=== PATIENT | male | born 1955 | race Caucasian/White ===

== ENCOUNTER 2020-06-12 16:33 | Outpatient (RCR) | payer BC, SELFPAY ==
[2020-06-12] MEDS: COVID-19 VACC, MRNA(PFIZER)/PF 30 MCG/0.3 ML SYRINGE IM (18:12)
[2020-07-03] MEDS: COVID-19 VACC, MRNA(PFIZER)/PF 30 MCG/0.3 ML SYRINGE IM (17:36)
== END 2020-06-12 23:59 ==
LOC: IMMUN 16:33
PROVIDERS: Referring Provider Family Medicine; Visit Provider Family Medicine
DX: Z23 Encounter for immunization (principal)
CPT/HCPCS: 0001A; 0002A; 91300

== ENCOUNTER 2022-01-01 05:59 | Day surgery (SDC) | payer BC, SELFPAY ==
[2022-01-01] VITALS (7 sets, daily range): BP systolic 104–141; BP diastolic 66–82; PULSE 55–66; RESP 16; TEMP 35.9–36.1; O2SAT 94–98; BMI 36.8
[2022-01-01] MEDS: Lactated Ringers 1,000 ML 15 ML IV ×2 (06:28→10:01)
--- NOTE | 2022-01-01 07:30 | CYST_PTH ---
PATIENT: RIK FERRARI LOC: [facility] – [place], [place] U#:[id number] AGE/SX: 66/M ROOM: RE01/01/[address]: Dr. Aric Herndon MD : 1955 BED: DIS: 01/01/2022 SPEC #: [id number] RECD: 01/01/22 11:08 STATUS: EDUARDO VLADISLAV #: [id number] CARMEN: 01/01/22 07:[address]: Aric Herndon DEPT: SURGICAL PATHOLOGY RECD BY: Rian Miller ENTERED: 01/01/22 12:28 SP TYPE: Cyst OTHR DR: Dr. Varinder Dickey, DO Tissues: A - Skin appendage, NOS B - CYST C - CYST D - CYST E - CYST Procedures: Surgery Specimen Level III Surgery Specimen Level IV HEADER OPERATION: Removal of cysts on back, removal axillary mole on side PRE-OP DIAGNOSIS: Sebaceous cyst, nevus comedonicus of trunk, skin tag TISSUE SUBMITTED: A ? Left axillary mole, B ? Left shoulder sebaceous cyst, C ? Left upper back sebaceous cyst, D ? Left lower back sebaceous cyst, E ? Right shoulder sebaceous cyst MICROSCOPIC DIAGNOSIS A. Skin lesion of left axilla, biopsy: Seborrheic keratosis, mildly inflamed. B. Cyst of left shoulder, excision: Epidermal inclusion cyst. C. Skin lesion of left upper back, excision: Fat necrosis, fibrosis, acute and chronic inflammation and focal microabscess formation. See comment. D. Cyst of left lower back, excision: Epidermal inclusion cyst. E. Cyst of right shoulder, excision: Epidermal inclusion cyst. AM:dino 01/04/2022 COMMENT C. A distinct cyst is not identified. MICROSCOPIC DESCRIPTION Slides are reviewed. GROSS DESCRIPTION A - Received in fixative is one container labeled with the patient's name and designated left axillary mole. The specimen consists of a piece of rothman-white skin measuring 1 x 0.5 cm and up to 0.4 cm in thickness. There is an ovoid, brown lesion on the surface measuring 0.9 x 0.3 cm. The specimen is inked, serially sectioned and submitted entirely in one cassette. B - Received in fixative is one container labeled with the patient's name and designated left shoulder sebaceous cyst. The specimen consists of a piece of rothman soft tissue measuring 2.5 x 2 x 1.5 cm. Sections reveal a cyst occupying the entire specimen filled with yellow sebum-like material. The specimen is inked and serially sectioned. Hot Mill Worker sections are submitted in one cassette. C - Received in fixative is one container labeled with the patient's name and designated left upper back sebaceous cyst. The specimen consists of two irregular pieces of rothman soft tissue measuring 4 x 2.5 x 2 cm and 1.5 x 1.5 x 1 cm. The largest piece appears to be consistent with ruptured cyst. Hot Mill Worker sections are submitted in three cassettes. D - Received in fixative is one container labeled with the patient's name and designated left lower back sebaceous cyst. The specimen consists of an irregular piece of soft tissue measuring 3 x 3.5 x 1.5 cm. The specimen appears consistent with ruptured cyst. Hot Mill Worker sections are submitted in one cassette. E - Received in fixative is one container labeled with the patient's name and designated right shoulder sebaceous cyst. The specimen consists of a piece of rothman-pink soft tissue measuring 2.5 x 1.5 x 1.5 cm. The specimen is replaced by a cyst filled with rothman-white cheesy material. Hot Mill Worker sections are submitted in one cassette. / SJ:dino 01/01/2022 TC:3 CPT: 92174 x2, 09775 x3
--- NOTE | 2022-01-01 07:31 | HP.PCM_ITS ---
History and Physical Date of Service:? 12/25/21 MR#: [id number] Acct: [id number] Name:RIK CERVANTES Rep #: [id number] : 1955 ? ? Provider: Dr. Aric Herndon MD Age/Sex:? 66/M ? ? Location: [facility] Status: Signed Intake Vital Signs ? 12/26/2207:56 Height 6 ft 2 in Weight: 289 lb BMI 37.0 BP 135/85 H Blood Pressure Location Lt brachial Position Sitting D Respiration 20 H Pulse 70 Pulse Source NIBP Temp 98.2 F Temp Source Temporal Pulse Oximetry (%) 95 Oxygen Delivery Method room air Intake Visit Reasons:?CYST UPPER L BACK Chief Complaint: multiple back cysts, left axillary lesion [employer] Air [employer] Operations Officer Required: No Is patient in pain?: No Allergies No Known Allergies Allergy (Verified 12/25/21 08:57) PFSH Medical History?(Updated 12/25/21 @ 17:[address] Aric Herndon MD) Back pain Infected sebaceous cyst of skin Osteoarthritis Surgical History?(Updated 12/25/21 @ 08:56 by Rachel Reyes) History of excision of pilonidal cyst History of foot surgery HPI HPI HPI: Patient is a 66-year-old male who presents for evaluation of a left upper back cyst.? He [facility] from [facility] after he was seen in November, when this cyst was initially addressed with an I&D procedure and antibiotics (Augmentin).? He reports that he actually has some 3-4 separate cysts that have never caused him many troubles.? He admits that 1 in the middle of his back is the largest and his father squeezed it for him approximately 15 years ago to relieve some of the pressure at that area.? He also requests removal of a left armpit mole and a skin tag on the inner aspect of his left eye.? He states that since his I&D procedure in November his back has not bothered him any longer, but he is hoping to have things evaluated for removal so they do not get to the point of becoming inflamed.? He denies a history of any other skin infections?particularly excluding any history of staph.? He denies any history of being told he has elevated blood sugars.? He denies any use of smoked tobacco, but does admit to the use of smokeless tobacco.? He denies any history of delayed wound healing. Regarding his left axillary mole, he admits that it has grown in size over many years (he initially states when he first noticed it was as a child).? He has not noticed any change in color.? He has not noticed any swollen lymph nodes.? He does not have any history of skin cancer.? He states that he has been heavyset most of his life so he has not had an inordinate amount of sun exposure to the area either. Lastly regarding his skin tag, he states that it is uncomfortable with his glasses, but does not interfere with his vision. 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 Pertinent surgical history includes: No history of anesthetic troubles Exam Const General: cooperative Orientation: alert, awake and oriented x3 Resp Effort & Inspection: normal respiratory effort Skin Other: Patient has semimobile subcutaneous lesions in the following areas: ? Left base of neck: Approximately 1 cm diameter ? Left upper back: Roughly 3 cm diameter ? Left mid back: Approximately 5 cm diameter ? Right shoulder: Approximately 1.5 cm diameter The mole in patient's left armpit is approximately 1 cm in length and appears symmetrical with uniform color.? I do not palpate any enlarged lymphadenopathy. The area patient complains of a skin tag is approximately 1 cm away from his lacrimal duct Assessment and Plan Assessment and Plan (1) Sebaceous cyst: ?Status:?Acute ?Comment: This is a 66-year-old male who presents for evaluation of multiple sebaceous cysts of his back after experiencing a inflamed/infected cyst last month that required incision and drainage and antibiotics.? This index cyst inflammatory process appears nearly completely resolved, however, by my count on exam he has 3 additional areas (noted in the exam section above).? We were not particularly bothersome to him at this point, but he does wish for them to be excised to avoid issues in the future.? I discussed that this could be done under a MAC anesthetic to keep him most comfortable.? I discussed that we should be able to close these areas primarily with dissolvable sutures?barring any unforeseen issues with dissection.? I have also shared with him that there is a small risk for seroma development?particularly with his mid back cyst given its size.? Lastly, patient states that he routinely goes for chiropractic adjustments at least once weekly and wishes to know whether this will still be possible postoperatively.? To this question I have suggested he abstain from any adjustments for 3 weeks postoperatively to minimize his risk for wound disruption. ?Plan: ? Excision of sebaceous cyst under local MAC at first mutually agreeable availability (2) Nevus comedonicus of trunk: ?Status:?Acute ?Comment: Patient with a approximately 1 cm nevus of the left armpit.? This is asymptomatic, but patient wishes for it to be removed.? Given our plans for excision of the multiple sebaceous cysts, discussed above, excision of this n evus could be done simultaneously.? Does not appear to be concerning for malignancy so I will perform a simple excision with narrow margins. ?Plan: ? Excision of left axillary nevus simultaneous with sebaceous cyst excision (3) Skin tag: ?Status:?Acute ?Comment: Patient with skin tag of skin just adjacent to the medial commissure and lacrimal papilla of the left eye.? This is causing some discomfort with wearing glasses.? However, given its proximity to the lacrimal drainage pathway, I would not be able to offer excision of this lesion.? Mr. Chery expresses understanding of this information. ?Plan: Patient will require evaluation by specialist given proximity to critical du ctwork I have re-examined the patient. There are no clinical changes since date of exam. Plan to proceed with excision of 4 subcutaneous lesions?likely sebaceous cysts?as well as a left axillary nevus.
[2022-01-01] MEDS: Cefazolin 2 GM in 0.9% Normal Saline 100 ML IV (07:39)
--- NOTE | 2022-01-01 10:23 | OP.PCM_ITS ---
Report of Operation Date of Procedure: 01/01/22 Pre-Operative Diagnosis: 1. Left axillary nevus 2. Multiple sebaceous cysts of the back Surgery/Procedure Performed:: Excision of left axillary nevus and sebaceous cysts x4 Surgeon: Aric Herndon field underwriter: Dayami Flowers Type of Anesthesia: MAC/Supplemental Anesthesiologist: Nabeel Kohli Specimen's removed: 1. Left axillary mole 2. Left shoulder sebaceous cyst 3. Left upper back sebaceous cyst 4. Left lower back sebaceous cyst Drains: None Estimated Blood Loss (mL): 75 Description of Procedure: After confirming consents and appropriate identification in the preoperative holding area, the patient was brought to the operating room. There he was positioned supine on the operating room table. He underwent induction of a MAC anesthetic with anesthesia and placement of an LMA. Preoperative antibiotics were administered. Left axillary hair was clipped and the left axilla was prepped and draped in usual sterile fashion. Formal timeout was conducted to confirm the patient and procedure to be done. I then instilled local anesthetic to produce a local block around the patient's left axillary nevus. Making an elliptical incision directly around this lesion I performed a simple excision of left axillary mole to a depth of the subcutaneous tissue. The specimen was passed off the field for pathology and the cavity was then closed in layers with a 3-0 Vicryl followed by 4-0 Monocryl in a subcuticular fashion. Dermabond was applied as a dressing. Patient was then positioned in a left lateral decubitus position taking care to pad pressure points and placed an axillary roll. The back was then prepped and draped in the usual sterile fashion. Again, local anesthetic was instilled over a cyst along the patient's left shoulder and a small transverse incision was made over the area of interest. Then using a comb ination of blunt and sharp dissection a sebaceous cyst was completely excised and passed off the field for pathologic processing. The cavity was irrigated and hemostasis was confirmed. A Ray-Kevin gauze was packed into the cavity to assist with hemostasis. We then proceeded with excision of left upper back sebaceous cyst. Here, again, a local block was made with 0.25% bupivacaine and I made an elliptical incision to include the patient's prior I&D site. There was thick skin and scar tissue in this location that made the dissection quite tedious. However, through combination of sharp and blunt dissection the specimen was completely removed from the wound cavity. This dissection ultimately extended down to a fascial depth. Several small bleeding vessels were cauterized under direct vision. Again, the cavity was irrigated and packed with a sterile gauze. We then proceeded with excision of left lower back sebaceous cyst. Local block was made in the skin in this location and I made a simple transverse incision over the midpoint of the area of fullness. Initially, I had incised directly on top of the capsule and I attempted to place a clamp in the subcutaneous tissues and spread atop the capsule. Unfortunately this led to capsule rupture and there was spillage of the sebaceous cyst contents. These were immediately suctioned free of the surgical field. Another tedious dissection followed with blunt and sharp dissection to fully remove this cyst?the largest cyst of those excised?from the surrounding subcutaneous tissue. It was delivered from the cavity and passed off the field for pathologic processing. Once again the cavity was irrigated and packed with a gauze. Lastly we moved to excision of right shoulder sebaceous cyst. A local block was made of the skin overlying this lesion and I performed an elliptical incision over the midportion of the lesion given the superficiality of the lesion. Sharp dissection was used to excise the lesion in totality. Fortunately, no disruption occurred of the cyst capsule. It was then passed off the field for pathologic processing. A sequence of irrigation and hemostasis verification followed. Through the creation of these local blocks, a total of mL 0.25% bupivacaine plain was administered. There is some persistent oozing in the patient's left upper back excision site that required us to revisit the cavity and perform additional selective electrocautery. Several small bleeding vessels were cauterized and this time hemostasis remained intact. All sites were then closed with the same technique in layers?using a 2-0 Vicryl to perform a running deep dermal closure and a 4-0 Monocryl for subcuticular closure. Steri-Strips and OpSite's were applied as dressings. Patient was then returned supine and his sedation was lightened and his LMA removed. He was transferred to PACU for ongoing monitoring. Complications None Admit VTE Documentation VTE Mechan Device Prophylaxis: SCD's
--- NOTE | 2022-01-01 10:31 | DCINST_ITS ---
Discharge Instructions Diet Discharge Diet: No restrictions Activity May shower in (days): 2 Ice area for (Minutes): 20 Lifting Restrictions: Limit any lifting to less than 10 pounds for the first week after surgery Dressing / Incision Call your doctor if your incision/area has: Continuous Slow Oozing, Sudden Increased Bleeding, Increased Pain/ Swelling, Increased Redness and Foul Smelling Discharge Call your doctor if you observe: Fever of 101 or Higher Remove Dressing in: 2 days Cleanse incision/area with: Soap & Water Additional Dressing/Incision Instructions:: Please leave Steri-Strips intact until they fall off spontaneously or are taken off at your follow-up visit Follow Up Care Please Follow Up With: Aric Herndon MD When: 7 days postop Test Results: Test results from this visit will be discussed in further detail at your follow- up appointment, if applicable. Discharge Plan Admission Primary Reason for Your Visit: Excision of sebaceous cysts and mole Attending Provider: Aric Herndon Primary Care Provider: Varinder Dickey Discharge Orders/Prescriptions Prescriptions: New oxycodone 5 mg tablet 5 mg PO Q6H PRN (Reason: pain) 5 Days Qty: 14 0RF Referrals / Follow Up: Varinder Dickey DO [Primary Care Provider] - Disposition Disposition (needs filled in before D/C Order can be placed): Home, Self Care
== END 2022-01-01 13:09 | disposition home or self-care (01) ==
LOC: SDC 06:04 → AC 06:04
PROVIDERS: PCP Family Medicine; Referring Provider Surgery; Visit Provider Surgery
PROC: (CPT 38500; principal; 2022-01-01 07:15)
DX: L82.1 Other seborrheic keratosis (principal); L72.3 Sebaceous cyst; D22.5 Melanocytic nevi of trunk; F17.290 Nicotine dependence, other tobacco product, uncomplicated; L91.8 Other hypertrophic disorders of the skin
CPT/HCPCS: 11406; 11402; 12034; 11403; 11401 ×2; 12031; 00300; 88304; 88305; J7120; J2405

== ENCOUNTER → 2023-11-22 | Outpatient (CLI) | payer OTHER, MEDICARE, SELFPAY ==
[2023-11-22 15:18] LABS: Amphetamine Urine VISTA NEGATIVE (<1000 ng/mL); Barbiturate Urine VISTA NEGATIVE (< 200 ng/mL); Benzodiazepine Urine VISTA NEGATIVE (< 200 ng/mL); Cocaine Urine VISTA NEGATIVE (< 300 ng/mL); Ecstacy Urine VISTA NEGATIVE (< 500 ng/mL); Methadone Urine VISTA NEGATIVE (< 300 ng/mL); PCP Urine VISTA NEGATIVE (< 25 ng/mL); THC Urine VISTA NEGATIVE (< 50 ng/mL); Vista UDS pH Range 4
== END | disposition home or self-care (01) ==
PROVIDERS: Referring Provider Anesthesiology; Visit Provider Anesthesiology
DX: F11.20 Opioid dependence, uncomplicated (principal); M47.816 Spondylosis without myelopathy or radiculopathy, lumbar region; M16.11 Unilateral primary osteoarthritis, right hip
CPT/HCPCS: 80307